=== PATIENT | female | born 1975 | race Caucasian/White ===

== ENCOUNTER 2016-10-08 04:54 | Emergency (ER) | payer BC, OTHER ==
[2016-10-08 04:55] VITALS: BMI 29.5
== END 2016-10-08 04:56 | disposition left against medical advice (07) ==
LOC: ED 04:54
DX: J02.9 Acute pharyngitis, unspecified (principal); R09.81 Nasal congestion; Z53.21 Procedure and treatment not carried out due to patient leaving prior to being seen by health care provider